=== PATIENT | male | born 1950 | race Caucasian/White ===

== ENCOUNTER 2020-05-18 06:36 | Emergency (ER) | payer MEDICARE, MEDICAID ==
[~2020-05-18] VITALS: Ht 167.6 cm; Wt 74.4 kg
--- NOTE | 2020-05-18 07:12 | NUR ---
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
--- NOTE | 2020-05-18 07:49 | NUR ---
PT MEDICATED PER JUN FOR PAIN AT THIS TIME WITH UROJECT.
[2020-05-18] MEDS ORDERED: LIDOCAINE 2%,20 ML JEL.PF.APP MM ONE (08:00)
--- NOTE | 2020-05-18 08:12 | NUR ---
JASON PLACED PER HOSPITAL PROTOCOL WITH AGUS CHOUDHURY AT FOR ASSISTANCE. ASEPTIC TECHNIQUE MAINTAINED AND PT TOLERATED PROCEDURE WELL. 580 ML OF BLOOD TINGED URINE DRAINED INTO JASON COLLECTION BAG AT THIS TIME. SAMPLE COLLECTED AND WALKED TO LAB.
[2020-05-18 08:16] LABS: BASOPHILS % (AUTO) 1 % (0-1); EOSINOPHILS % (AUTO) 1 % (1-7); LYMPHOCYTES % (AUTO) 11 % (22-44); MEAN CORPUSCULAR HEMOGLOBIN 31.6 pg (27.5-34.5); MEAN CORPUSCULAR HGB CONC 33.8 g/dL (33.2-36.2); MEAN PLATELET VOLUME 6.7 fL (7.4-10.4); MONOCYTES % (AUTO) 7 % (2-9); NEUTROPHILS % (AUTO) 80 % (42-75); PLATELET COUNT 345 x10^3/uL (130-400); RED CELL DISTRIBUTION WIDTH 12.8 % (9.4-14.8)
[2020-05-18 08:23] LABS: MD NO
[2020-05-18 08:26] LABS: ALANINE AMINOTRANSFERASE 31 U/L (12-78); ALBUMIN 3.1 g/dL (3.4-5.0); ANION GAP 7 mmol/L (5-15); CALCIUM 9.2 mg/dL (8.5-10.1); CHLORIDE 107 mmol/L (98-107); CREATININE 1.07 mg/dL (0.7-1.3)
[2020-05-18 08:28] LABS: ALKALINE PHOSPHATASE 81 U/L (45-117); BILIRUBIN,TOTAL 0.3 mg/dL (0.2-1.0); TOTAL PROTEIN 8.4 g/dL (6.4-8.2)
[2020-05-18 08:33] LABS: MICROSCOPIC AUTO
[2020-05-18] MEDS ORDERED: PLEASE ENTER ALLERGIES MC SCH (09:00)
--- NOTE | 2020-05-18 09:22 | NUR ---
PT PROVIDED URINARY LEG BAG AND INSTRUCTIONS ON USE. PT ABLE TO VERBALIZE CORRECT UNDERSTANDING OF USE, AND VERBALIZES UNDERSTANDING OF NEED FOR URINARY F/U. PT VSS AT THIS TIME. AWAITING PT D/C INSTRUCTIONS.
[2020-05-18 09:48] VITALS: BP 149/81
== END 2020-05-18 09:51 | disposition home or self-care (01) ==
LOC: ED 09:20
DX: R33.9 Retention of urine, unspecified (principal); I10 Essential (primary) hypertension; E11.9 Type 2 diabetes mellitus without complications
CPT/HCPCS: 36415; 51702; 80053; 81001; 85025; 99284